=== PATIENT | female | born 1940 | race Caucasian/White ===

== ENCOUNTER 2018-02-21 09:45 | Emergency (ER) | payer MEDICARE ==
[~2018-02-21] VITALS: Ht 154.9 cm; Wt 61.7 kg
[2018-02-21] MEDS ORDERED: Naprosyn500 MG PO (11:14)
== END 2018-02-21 11:21 | disposition home or self-care (01) ==
LOC: ER 09:45
DX: M10.071 Idiopathic gout, right ankle and foot (principal)
CPT/HCPCS: 73630; 99283

== ENCOUNTER 2020-12-29 11:52 | Emergency (ER) | payer MEDICARE ==
[~2020-12-29] VITALS: Ht 154.9 cm; Wt 56.7 kg
[~2020-12-29 11:52] MED LIST: Naprosyn500 MG PO
[2020-12-29] MEDS ORDERED: HYDR1TAB94 PO (13:39)
== END 2020-12-29 14:22 | disposition home or self-care (01) ==
LOC: ER 11:52
DX: S73.004A Unspecified dislocation of right hip, initial encounter (principal); X50.1XXA Overexertion from prolonged static or awkward postures, initial encounter
CPT/HCPCS: 27266; 73501; 73502; 96374-59; 96375-59; 99284-25; J2270; J2405; J2704; J7030